=== PATIENT | female | born 1970 | race Caucasian/White ===

== ENCOUNTER → 2016-11-03 | Outpatient (CLI) | payer OTHER ==
--- NOTE | ~2016-11-03 | WND ---
ADMIT: 11/03/2016 RM/LOC: [facility] MR#: [id number] [address] [id number] [place] [address] Wound Care Clinic SEX: F AGE: 46 : 1970 DATE OF VISIT: 11/04/2016 TIME IN: 1440 hours. TIME OUT: 1520 hours. REASON FOR CONSULT: Unna boot application to bilateral lower extremities related to lymphedema and weeping. This is request for wound care from Dr. Christine Daniels. HISTORY OF PRESENT ILLNESS: Anderson is a 46-year-old female, who is well known to us in outpatient wound care for lymphedema and weepy bilateral lower extremities. She recently presented on October 22, 2016 with multiple open areas to bilateral lower extremities. She also carries a history of morbid obesity, lymphedema, and knee pain. She reports that she went to Dr. Daniels yesterday and got a steroid injection in her left knee and reports her left knee does not hurt anymore, but her right knee hurts terrible. She called the office and asked for a wheelchair ride in to [facility] and a wheelchair ride out to her car. She is currently rating her right knee pain at 10/10 when she stands on it. She does not say that it feels like it is going to give out on her. She told me that she was told that it is bone on bone. She denies any complaints to her lower extremities where the weeping edema is. She denies any complaints of fever or chills. PHYSICAL EXAMINATION: VITAL SIGNS: Blood pressure 133/110, pulse 99, temperature 99 degrees Fahrenheit, pulse ox 95%, heart rate 85, and respirations 14. MUSCULOSKELETAL: Assessment of bilateral lower extremities reveals intact Unna boots. There is yellow strike through on the left lower extremity unna boot. On the left lower extremity upon removal, the foot circumference is 22 cm, ankle 33, and calf is 48. She has a superficial open area that runs horizontal across her lower left leg that measures 9 cm in length by 16 cm in width. It is pink and weepy. The rest of her left lower extremity has brawny edema. Her foot shows no edema. Assessment of the right lower extremity shows no edema in the foot, just the brawny edema from the ankle up to her knee. Her right foot circumference 22 cm, ankle 30, and calf 41. ASSESSMENT: 1. Obesity. 2. Bilateral lower extremity lymphedema with weeping superficial ulcerations. 3. Knee pain. PLAN: The Unna boots were removed off bilateral lower extremities. The patient tolerated the procedure well. Her bilateral lower extremities were ADMIT: 11/03/2016 RM/LOC: [facility] MR#: [id number] [address] [place], [place] [id number] [address] [address] [place] [address] Wound Care Clinic SEX: F AGE: 46 : 1970 washed well with warm soapy water, rinsed, and patted dry. I then applied a large amount of [place] to bilateral lower extremities. She did have a lot of excoriated areas above where the Unna boot was on the right lower extremity. I told her that the [place] would prevent the itching. I then used impregnated gauze and wrapped from the proximal base of her toes to the popliteal fossa. Then, I used Kerlix and wrapped from the ankle to the popliteal fossa. Then, I used Coban and wrapped from the proximal base of the toes to the popliteal fossa. The patient tolerated the procedure well. She will follow up with us on Tuesday the 08 of November. She is going to try and get a hold of Dr. Daniels to see if she can get an injection in her right knee. She was wheel chaired all the way in to outpatient wound clinic and asked for a wheelchair ride all the way to her car at discharge. Velvet Pearce APRN/ cathleen JOB #: [id number] CC: Christine Daniels, Attending Physician Christine Daniels, Family Physician
== END | disposition home or self-care (01) ==
LOC: RAD.S 11-02 11:00
PROC: 0S9D3ZZ Drainage of Left Knee Joint, Percutaneous Approach (ICD-10-PCS; principal; 2016-11-03)
DX: M17.12 Unilateral primary osteoarthritis, left knee (principal)

== ENCOUNTER → 2016-11-05 | Outpatient (CLI) | payer OTHER | END | disposition home or self-care (01) | LOC: RAD.S 11-04 17:18 | PROC: 0S9C3ZZ Drainage of Right Knee Joint, Percutaneous Approach (ICD-10-PCS; principal; 2016-11-05) | DX: M17.11 Unilateral primary osteoarthritis, right knee (principal); I89.0 Lymphedema, not elsewhere classified ==